=== PATIENT | male | born 2000 | race African-American/Black ===

== ENCOUNTER 2019-07-19 10:59 | Emergency (ER) | payer MEDICAID ==
[~2019-07-19] VITALS: Ht 182.9 cm; Wt 95.3 kg
[2019-07-19 11:14] VITALS: BP 131/80
== END 2019-07-19 12:31 | disposition home or self-care (01) ==
LOC: ER 10:59
DX: S39.012A Strain of muscle, fascia and tendon of lower back, initial encounter (principal); X50.1XXA Overexertion from prolonged static or awkward postures, initial encounter; Y93.B9 Activity, other involving muscle strengthening exercises; Y92.89 Other specified places as the place of occurrence of the external cause; Y99.8 Other external cause status
CPT/HCPCS: 81002

== ENCOUNTER 2020-07-27 09:49 | Emergency (ER) | payer MEDICAID ==
[~2020-07-27] VITALS: Ht 190.5 cm; Wt 97.1 kg
[2020-07-27 09:59] VITALS: BP 155/89
[2020-07-27 11:43] LABS: Basophils # (auto) 0 10 ^3/uL (0-0.2); Eosinophils # (auto) 0.1 10 ^3/uL (0-0.8); Hemoglobin 14.8 g/dL (13.5-17.5); Mean Corpuscular Hemoglobin 23.7 pg (28.0-32.0); Monocytes # (auto) 0.3 10 ^3/uL (0-1.3); Neutrophils # (auto) 1.2 10 ^3/uL (1.6-8.6); White Blood Cell 2.7 10^3/uL (4.4-10.8)
[2020-07-27 11:45] LABS: Basophils % (auto) 0.9 % (0.0-2.0); Eosinophils % (auto) 4.8 % (0.0-7.0); Hematocrit 46.4 % (41.0-53.0); Mean Corpuscular Hgb Conc. 31.9 g/dL (32.0-36.0); Mean Corpuscular Volume 74.2 fL (80.0-100.0); Monocytes % (auto) 10.4 % (0.0-12.0); Neutrophils % (auto) 44.9 % (37.0-80.0); Nucleated Red Blood Cells % 0.1 %; Platelet Count (auto) 210 10^3/uL (140-450); Red Blood Cells 6.25 10^6/uL (4.5-5.90); Red Cell Distribution Width 14.6 % (11.8-14.3)
[2020-07-27 12:10] LABS: Albumin 4.1 g/dL (3.4-5.0); Anion Gap 3 (5-15); Blood Urea Nitrogen 14 mg/dL (7-18); Calcium 8.8 mg/dL (8.5-10.1); Carbon Dioxide 28 mmol/L (21-32); Chloride 107 mmol/L (98-107); Glucose 94 mg/dL (74-106); Potassium 4.3 mmol/L (3.5-5.1); Sodium 138 mmol/L (136-145)
[2020-07-27 12:16] LABS: Alanine Aminotransferase 19 U/L (16-61); Alkaline Phosphatase 70 U/L (45-117); Aspartate Aminotransferase 15 U/L (15-37); BUN/Creatinine Ratio 10.2; GFR African American 84 mL/min; GFR Non-African American 70 mL/min; Total Protein 7.8 g/dL (6.4-8.2)
[2020-07-27 12:31] LABS: Urine Bacteria NONE SEEN /hpf (None Seen); Urine Blood Negative /uL (Negative); Urine Specific Gravity 1.024 (1.001-1.035); Urine WBC 1 /hpf (0 - 3)
== END 2020-07-27 12:48 | disposition home or self-care (01) ==
LOC: ER 09:49
DX: R07.89 Other chest pain (principal); M54.5 Low back pain; F12.10 Cannabis abuse, uncomplicated; R07.9 Chest pain, unspecified
CPT/HCPCS: 36415; 71046; 72100; 80053; 81001; 84484; 85025; 93005

== ENCOUNTER 2021-10-13 06:03 | Emergency (ER) | payer MEDICAID ==
[~2021-10-13] VITALS: Ht 190.5 cm; Wt 99.8 kg
[2021-10-13 06:05] VITALS: BP 131/93
[2021-10-13] MEDS ORDERED: AMOX-277 PO (06:55)
== END 2021-10-13 06:59 | disposition home or self-care (01) ==
LOC: ER 06:03
DX: T16.1XXA Foreign body in right ear, initial encounter (principal); Z79.2 Long term (current) use of antibiotics; X58.XXXA Exposure to other specified factors, initial encounter; Y93.89 Activity, other specified; Y92.89 Other specified places as the place of occurrence of the external cause; Y99.8 Other external cause status
CPT/HCPCS: 69200

== ENCOUNTER 2024-03-02 01:03 | Emergency (ER) | payer MEDICAID ==
[~2024-03-02] VITALS: Ht 190.5 cm; Wt 100.0 kg
[~2024-03-02 01:03] MED LIST: AMOX875T4 PO
[2024-03-02 01:42] LABS: Hematocrit 45.2 % (41.0-53.0); Hemoglobin 15.1 g/dL (13.5-17.5); Mean Corpuscular Hemoglobin 24.8 pg (28.0-32.0); Mean Corpuscular Hgb Conc. 33.4 g/dL (32.0-36.0); Mean Corpuscular Volume 74.2 fL (80.0-100.0); Platelet Count (auto) 195 10^3/uL (140-450); Red Blood Cells 6.08 10^6/uL (4.5-5.90); Red Cell Distribution Width 14.7 % (11.8-14.3)
[2024-03-02 01:57] LABS: Alanine Aminotransferase 17 U/L (7-40); Albumin 4.5 g/dL (3.2-4.8); Alkaline Phosphatase 81 U/L (46-116); Anion Gap 8 (5-15); Aspartate Aminotransferase 17 U/L (13-40); BUN/Creatinine Ratio 5.3 (10.0-20.0); Bilirubin, Total 0.9 mg/dL (0.2-1.0); Blood Urea Nitrogen 8 mg/dL (9-23); Calcium 9.6 mg/dL (8.7-10.4); Carbon Dioxide 25 mmol/L (20-31); Chloride 107 mmol/L (98-107); Glucose 102 mg/dL (74-106); Potassium 3.4 mmol/L (3.5-5.1); Sodium 140 mmol/L (136-145); Total Protein 7.2 g/dL (5.7-8.2)
[2024-03-02 02:13] LABS: Band Neutrophils % (manual) 0; Basophils % (manual) 0 (0.0-2.0); Blast Cells 0; Metamyelocytes % 0; Myelocytes % 0; Promyelocytes % 0; Reactive Lymphocytes 0
[2024-03-02 03:06] LABS: Eosinophils % (manual) 3 (0-7); Lymphocytes % (manual) 55 (10.0-50.0); Monocytes % (manual) 9 (0-12); Platelet Estimate Adequate
[2024-03-02] MEDS: SODIUM CHLORIDE 0.9% 1,000 ML IV ONE (04:02)
[2024-03-02] MEDS: POTASSIUM CHL 20 Meq TABLET PO ONE (04:08)
[2024-03-02] MEDS: FAMOTIDINE (10MG/ML) 2ML VL IV ONE (04:25)
[2024-03-02] MEDS: ONDANSETRON HCL 4 MG/2 ML VIAL IV ONE (04:25)
[2024-03-02] MEDS ORDERED: ZOFR4T PO (05:08)
[2024-03-02 05:24] VITALS: BP 130/68; PULSE 70; RESP 18; TEMP 98.1; O2SAT 100
== END 2024-03-02 05:28 | disposition home or self-care (01) ==
LOC: ER 01:03
DX: R06.02 Shortness of breath (principal); R11.0 Nausea; R07.89 Other chest pain; E87.6 Hypokalemia
CPT/HCPCS: 36415; 71045; 80053; 83880; 84484; 85007; 85027; 93005; 96361; 96374; 96375; 99285; J2405; J3490; J7030